=== PATIENT | female | born 1960 | race Caucasian/White ===

== ENCOUNTER → 2017-01-27 | Outpatient (CLI) | payer OTHER ==
[~2017-01-27] VITALS: Ht 165.1 cm; Wt 72.6 kg
[~2017-01-27] MED LIST: ADULT LOW DOSE81 M1 PO; ADVAIR 250/501 DISK IH; ASPIR 8181 M1 PO; ASPIRIN81 M1 PO; ATORVASTATIN CA40 MG PO; Aspirin E.C. PO; BRINTELLIX5 MG PO; CARVEDILOL25 MG PO; DILTIAZEM 24HR180 MG PO; EFFEXOR XR150 MG PO; ENDOCET 5-3251 EACH PO; INCRUSE ELLI62.5 MCG IH; LEVO-T125 MCG PO; LEVOTHYROXINE100 MCG PO; LEXAPRO10 MG PO; LEXAPRO20 MG PO; LEXAPRO5 MG; LOSARTAN POTAS100 MG PO; MIRALAX255 GM PO; PROVENTIL,2.5 MG/3 M IH; RANITIDINE HCL150 MG PO; ROBAXIN500 MG PO; VALSARTAN320 MG PO; VENTOLIN HFA18 GM IH; VICODIN ES 7.51 EAC1 PO; VICODIN,LORT1 TABLET PO; Vicodin,Norco 5/325 PO; WELLBUTRIN XL300 MG PO; XANAX1 MG PO
== END | disposition home or self-care (01) ==
LOC: AMB 01-07 08:00
DX: K63.5 Polyp of colon (principal); I42.0 Dilated cardiomyopathy; I10 Essential (primary) hypertension; G47.30 Sleep apnea, unspecified; E03.9 Hypothyroidism, unspecified; Z87.891 Personal history of nicotine dependence; F32.9 Major depressive disorder, single episode, unspecified; F41.1 Generalized anxiety disorder; Z79.82 Long term (current) use of aspirin
CPT/HCPCS: 88305; J3010